=== PATIENT | male | born 1960 | race Two or more races ===

== ENCOUNTER 2017-06-05 16:11 | Inpatient (IN) | payer OTHER ==
[~2017-06-05] VITALS: Ht 170.2 cm; Wt 75.3 kg
--- NOTE | 2017-06-05 17:25 | NUR ---
SENT FROM [facility] FOR POSITIVE BLOOD CULTURE. PATIENT LAST DIALYZED TODAY. PATIENT HAS HD CATH ON RCW. A/OX 4. BREATHING EVEN AND UNLABORED. NO SOB. VITALS STABLE. SAFETY AND COMFORT MEASURES IN PLACE. AWAITING MD ORDERS.
--- NOTE | 2017-06-05 17:45 | NUR ---
PAGED COVERING MACHINE TENDER DR LUIS F HUBBARD WHO IS COVERING MACHINE TENDER FOR DR FRANK SANTIAGO
--- NOTE | 2017-06-05 17:52 | NUR ---
CALLED NURSING SUP. FOR MS BED
[2017-06-05] MEDS ORDERED: FURO20TA4 PO (17:55)
[2017-06-05] MEDS ORDERED: LOSA100T15 PO (17:55)
[2017-06-05] MEDS ORDERED: SEVE800T8 PO (17:55)
[2017-06-05] MEDS ORDERED: ATOR40TA PO (17:55)
[2017-06-05] MEDS ORDERED: ASPI-1169 PO (17:55)
[2017-06-05] MEDS ORDERED: CALC0.5C11 PO (17:55)
[2017-06-05] MEDS ORDERED: INSU100I26 SQ (17:55)
[2017-06-05] MEDS ORDERED: NIFE90TA2 PO (17:55)
[2017-06-05] MEDS ORDERED: CHOL500052 PO (17:55)
[2017-06-05] MEDS ORDERED: VANCOMYCIN 1 GM in IV D5W 250 ML IV ONE (18:00)
[2017-06-05 18:04] LABS: BASOPHILS % (AUTO) 0.4 % (0.0-2.0); EOSINOPHILS # (AUTO) 0.2 /CMM (0.0-0.7); EOSINOPHILS % (AUTO) 3.7 % (0.0-6.0); HEMATOCRIT 33 % (39-51); HEMOGLOBIN 11.5 g/dL (13.5-17.5); LYMPHOCYTES # (AUTO) 1.3 /CMM (0.8-4.8); LYMPHOCYTES % (AUTO) 20.2 % (20.0-44.0); MEAN CORPUSCULAR HEMOGLOBIN 31 PG (26.0-33.0); MEAN CORPUSCULAR HGB CONC 35 g/dl (31.0-36.0); MEAN CORPUSCULAR VOLUME 89 fL (80-96); MONOCYTES # (AUTO) 0.4 /CMM (0.1-1.30); MONOCYTES % (AUTO) 6.7 % (2.0-12.0); NEUTROPHILS # (AUTO) 4.5 /CMM (1.8-8.9); PLATELET COUNT (AUTO) 125 /CMM (150-450); RDW COEFFICIENT OF VARIATION 12.9 (11.5-15.0); RED BLOOD CELL COUNT(AUTO) 3.75 MIL/uL (4.5-6.0); WHITE BLOOD COUNT (AUTO) 6.4 K/uL (4.3-11.0)
[2017-06-05 18:15] LABS: CALCIUM, SERUM 8.7 mg/dL (8.5-10.1); CREATININE 4.5 mg/dL (0.6-1.3); POTASSIUM 4.3 mmol/L (3.5-5.1)
[2017-06-05 18:19] LABS: INR 0.95 (0.87-1.13); PROTHROMBIN TIME 9.9 SECS (9.5-12.7)
--- NOTE | 2017-06-05 18:20 | NUR ---
NEW IV STARTED ON RAC, 20 G. BLOOD DRAWN AND SENT TO LAB.
[2017-06-05 18:21] LABS: ALBUMIN 3.3 g/dL (3.4-5.0); BILIRUBIN,TOTAL 0.5 mg/dL (0.2-1.0)
[2017-06-05] MEDS: LINEZOLID RTU BAG 600 MG in PREMIX 1 EA IV SCH ×2 (18:32→21:00)
--- NOTE | 2017-06-05 18:32 | NUR ---
PER PHARMACY PATIENT NEEDS TO RECEIVED EITHER ZYVOX OR VANCO. NOT BOTH. INFORMED AND STATED TO GIVE ZYVOX AND CANCEL VANCO.
--- NOTE | 2017-06-05 19:14 | NUR ---
ASSUMED CARE: PT AWAKE WATCHING TV, A/O X 4, BREATHING EVEN/UNLABORED, SKIN WARM DRY, PT WITH DIALYSIS PORT TO R UPPER CHEST, RED/TENDER/WARM AT SITE, NO C/O PAIN, PER PT "I RECEIVES DIALYSIS T//S, AND COMPLETED FULL DIALYSIS TODAY. PT IS UPDATED ON PLAN OF CARE
--- NOTE | 2017-06-05 19:20 | NUR ---
REPORT GIVEN TO FRANCO BROOKS FOR [facility].
--- NOTE | 2017-06-05 22:35 | NUR ---
REPORT TO MILES BROOKS. ALL QUESTIONS ANSWERED
--- NOTE | 2017-06-05 23:00 | NUR ---
PERINATAL TECHNICIANCOLLECTION SYSTEMS CONSULTANT NOTES: ADMITTED A 56YO MALE FROM [facility] WITH CC OF HAVING POSITIVE BLOOD CULTURE. PATIENT IS UNDER THE CARE OF DR. LUIS F HUBBARD. HE WAS THEN USHERED TO THE BED. PATIENT APPEARS ALERT AND ORIENTED X4, AMBULATORY, ABLE TO MAKE NEEDS KNOWN. SKIN AND BODY ASSESSMENT CHECKED. PICTURES TAKEN AND PLACED IN THE CHART. ADMISSION ORDERS PLACED. INITIAL ACCUCHECK DONE WITH A READING OF 296MG/DL. PATIETN PLACED ON SAFETY AND FALL PRECAUTIONS. ORIENTED TO UNIT, CARE PLAN AND INFORMED OF DOCTOR ATTENDING TO HIS CARE. IV HEPLOCK IN PLACE ON RIGHT AC G#20- WITH GOOD RETURN FLOW. PLACED BED IN LOW AND LOCKED POSITION. CALL LIGHT PLACED WITHIN PATIENT'S REACH. PROVIDED PATIENT WITH SNACKS AND FLUIDS TOLERATED. PLACED PATIENT ON TELE MONITORING- WITH SINUS RHYTHM 61BPM. WILL ENDORSE PATIENT TO DAY SHIFT NURSE. WILL ATTEND TO PATIENT'S NEEDS.
[2017-06-05 23:30] VITALS: BP 141/75
[2017-06-05 23:49] VITALS: BP 162/92
[2017-06-06] MEDS ORDERED: BLOOD SUGAR DIAGNOSTIC 1 EACH STRIP IN SCH (01:00)
[2017-06-06] MEDS ORDERED: DEXTROSE 50%-WATER 50 ML DISP.SYRIN IV PRN (02:00)
[2017-06-06 04:00] VITALS: BP 144/90
[2017-06-06 05:09] VITALS: BP 144/90
[2017-06-06] MEDS: BLOOD SUGAR DIAGNOSTIC 1 EACH STRIP IN SCH ×4 (06:11→21:38)
--- NOTE | 2017-06-06 06:45 | NUR ---
MS RN NOTES: DR. MAURICIO CALLED OVER THE PHONE TO HAVE PATIENT READY FOR THE PROCEDURE. PATIENT SIGNED THE CONSENT FOR TEMPORARY DIALYSIS CATHETER INSERTION. AND PERMA CATH REMOVAL, THEN WITNESSED BY THE UNDERSIGNED. PATIENT PREPARED AND INSTRUCTED NPO.
[2017-06-06 07:27] LABS: BASOPHILS % (AUTO) 0.6 % (0.0-2.0); EOSINOPHILS # (AUTO) 0.4 /CMM (0.0-0.7); EOSINOPHILS % (AUTO) 6.4 % (0.0-6.0); HEMATOCRIT 33 % (39-51); HEMOGLOBIN 11.4 g/dL (13.5-17.5); LYMPHOCYTES # (AUTO) 1.7 /CMM (0.8-4.8); LYMPHOCYTES % (AUTO) 28.6 % (20.0-44.0); MEAN CORPUSCULAR HEMOGLOBIN 31 PG (26.0-33.0); MEAN CORPUSCULAR HGB CONC 34 g/dl (31.0-36.0); MEAN CORPUSCULAR VOLUME 91 fL (80-96); MONOCYTES # (AUTO) 0.6 /CMM (0.1-1.30); MONOCYTES % (AUTO) 9.5 % (2.0-12.0); NEUTROPHILS # (AUTO) 3.2 /CMM (1.8-8.9); NEUTROPHILS % (AUTO) 54.9 % (43.0-81.0); PLATELET COUNT (AUTO) 127 /CMM (150-450); RDW COEFFICIENT OF VARIATION 14.2 (11.5-15.0); RED BLOOD CELL COUNT(AUTO) 3.68 MIL/uL (4.5-6.0); WHITE BLOOD COUNT (AUTO) 5.9 K/uL (4.3-11.0)
--- NOTE | 2017-06-06 07:40 | NUR ---
RN OPENING NOTES RECEIVED PT. PT IS STABLE AND IN BED. A/OX4. MD DR. MAR AT BEDSIDE FINISHING PROCEDURE. MD DID NOT COMPLETE BEDSIDE PROCEDURE, REMOVAL OF EXISTING PERMA CATH AND PLACEMENT OF TEMPORARY DIALYSIS CATHETER. PER MD ORDER, PERMA CATH WILL BE REMOVED IN OR ON 06/07/17. SAFETY MEASURES IN PLACE, CALL LIGHT WITHIN REACH. WILL CONTINUE TO MONITOR.
--- NOTE | 2017-06-06 07:45 | NUR ---
MS RN: PIPELINE WELDER WAS INFORMED BY DR. MAURICIO, PATIENT WAS NOT ABLE TO TOLERATE THE PROCEDURE AND THAT HE WILL DO THE PROCEDURE IN THE OPERATING ROOM UNDER SEDATION. EXPLAINED TO THE PATIENT. INFORMED THE DAY SHIFT NURSE OF THE OUTCOME OF THE PROCEDURE. WILL CONTINUE TO MONITOR PATIENT. Addendum: 06/06/17 at 0816 by TRISTON FERNANDEZ PATIENT NOT GIVEN HIS REGULAR INSULIN SLIDING SCALE FOR BLOOD SUGAR 260- PATIENT HAS TO UNDERGO THE PROCEDURE. DAY SHIFT NURSE- JOSELUIS MADE AWARE.
[2017-06-06 08:00] VITALS: BP 169/93
[2017-06-06 08:00] LABS: CALCIUM, SERUM 8.6 mg/dL (8.5-10.1); CREATININE 5.2 mg/dL (0.6-1.3); MAGNESIUM 2.3 mg/dL (1.8-2.4); PHOSPHORUS 4.6 mg/dL (2.5-4.9); POTASSIUM 4.4 mmol/L (3.5-5.1)
[2017-06-06] MEDS: LINEZOLID RTU BAG 600 MG in PREMIX 1 EA IV SCH ×2 (08:34→21:34)
[2017-06-06] MEDS ORDERED: HOME MED MISCELLANEOUS XX SCH (09:00)
[2017-06-06] MEDS ORDERED: ACETAMINOPHEN 325 MG TABLET PO PRN (09:30)
[2017-06-06] MEDS ORDERED: ONDANSETRON HCL/PF 4 MG/2 ML VIAL IVP PRN (09:30)
[2017-06-06] MEDS: CALCITRIOL 0.25 MCG CAPSULE PO SCH (10:14)
[2017-06-06] MEDS: NIFEdipine XL 60 MG TAB PO SCH (10:15)
[2017-06-06] MEDS: FUROSEMIDE 20 MG TABLET PO SCH (10:16)
[2017-06-06] MEDS: LOSARTAN POTASSIUM 50 MG TABLET PO SCH (10:16)
[2017-06-06] MEDS: ASPIRIN 81 MG TAB.CHEW PO SCH (10:16)
[2017-06-06 10:42] LABS: EOSINOPHILS % (MANUAL) 5 % (0-4); LYMPHOCYTES % (MANUAL) 27 % (16-48); MONOCYTES % (MANUAL) 10 % (0-11.0); NEUTROPHILS % (MANUAL) 58 (42-76)
[2017-06-06] MEDS ORDERED: HEPARIN SODIUM, PORCINE 1,000 UNIT/ML VIAL IV ONE ×2 (12:01→12:32)
[2017-06-06] MEDS ORDERED: HEPARIN SODIUM,PORCINE 1000 UNIT/1ML MDV VIAL IV ONE (12:11)
[2017-06-06] MEDS: SEVELAMER CARBONATE 800 MG TABLET PO SCH ×2 (12:17→17:19)
[2017-06-06] MEDS: INSULIN REGULAR, HUMAN 100 UNIT/ML 3 ML VIAL SQ PRN ×3 (12:22→21:41)
--- NOTE | 2017-06-06 14:07 | NUR ---
WOUND CARE CONSULT: PT PRESENTS WITH LEFT ANTERIOR LOWER LEG DRY ABRASION AND CALLUS TO LEFT PLANTAR FOOT, PRESENT ON ADMISSION. DEFER TO MD FOR HD CATH SITE. DRESSING DRY AND INTACT TO CHEST. PT INDEPENDENT WITH BED MOBILITY AND CONTINENT. WILL SEE PRN.
[2017-06-06 16:00] VITALS: BP 130/79
--- NOTE | 2017-06-06 18:38 | NUR ---
RN CLOSING NOTES PT STABLE AND RESTING IN BED. NO S/S OF RESPIRATORY DISTRESS OR SOB. CONSENT SIGNED AND PLACED IN CHART FOR HD CATH PLACEMENT TMR 06/07/17. SAFETY MEASURES IN PLACE, CALL LIGHT WITHIN REACH. WILL ENDORSE TO SALES COORDINATOR FOR GRZEGORZ.
--- NOTE | 2017-06-06 19:10 | NUR ---
RN OPEN NOTES RECEIVED PATIENT AWAKE SITTING IN CHAIR. A/O X4. NO SIGNS OF DISTRESS OR DISCOMFORT. BREATHING EVEN AND UNLABORED. IV ACCESS IN RAC, PATENT AND INTACT, NO SIGNS OF REDNESS OR INFILTRATION. HAS RCW PERMACATH INTACT WITH DRESSING C/D/I. BED IN LOW LOCKED POSITION WITH SIDE RAILS X2. CALL LIGHT WITHIN REACH. WILL CONTINUE TO MONITOR.
[2017-06-06 20:00] VITALS: BP 142/94
[2017-06-06] MEDS: ATORVASTATIN 40 MG TABLET PO SCH (21:35)
[2017-06-06] MEDS: INSULIN DETEMIR 100 UNIT/ML CARTRIDGE SQ SCH (21:40)
[2017-06-07] MEDS ORDERED: LIDOCAINE 0.5% HCL 50 ML VIAL ONE (06:18)
--- NOTE | 2017-06-07 06:45 | NUR ---
RN CLOSING NOTES PATIENT GOING DOWN FOR SURGERY IN STABLE CONDITION WITH FAMILY AT BEDSIDE. A/O X4. NO SIGNS OF DISTRESS OR DISCOMFORT. BREATHING EVEN AND UNLABORED. IV ACCESS IN RAC, PATENT AND INTACT, NO SIGNS OF REDNESS OR INFILTRATION. HAS RCW PERMACATH INTACT WITH DRESSING C/D/I. ALL NEEDS MET. NO SIGNIFICANT CHANGES THROUGH THE NIGHT. WILL ENDORSE TO AM SHIFT FOR GRZEGORZ.
[2017-06-07] MEDS ORDERED: MIDAZOLAM HCL 2 MG/2ML VIAL ONE (06:54)
--- NOTE | 2017-06-07 07:00 | NUR ---
ms peterson initial notes patient transported to the surgery for scheduled procedure for permacath removal accompanied by surgery staff.
[2017-06-07] MEDS: BLOOD SUGAR DIAGNOSTIC 1 EACH STRIP IN SCH ×4 (07:30→20:55)
[2017-06-07 08:00] VITALS: BP 145/94
[2017-06-07] MEDS: SEVELAMER CARBONATE 800 MG TABLET PO SCH ×3 (09:12→17:17)
[2017-06-07] MEDS: NIFEdipine XL 60 MG TAB PO SCH (09:13)
[2017-06-07] MEDS: ASPIRIN 81 MG TAB.CHEW PO SCH (09:13)
[2017-06-07] MEDS: CALCITRIOL 0.25 MCG CAPSULE PO SCH (09:13)
[2017-06-07] MEDS: FUROSEMIDE 20 MG TABLET PO SCH (09:13)
[2017-06-07] MEDS: LOSARTAN POTASSIUM 50 MG TABLET PO SCH (09:14)
[2017-06-07] MEDS: LINEZOLID RTU BAG 600 MG in PREMIX 1 EA IV SCH ×2 (09:17→20:48)
[2017-06-07] MEDS: INSULIN REGULAR, HUMAN 100 UNIT/ML 3 ML VIAL SQ PRN ×3 (11:46→21:15)
[2017-06-07 16:00] VITALS: BP 169/102
--- NOTE | 2017-06-07 19:00 | NUR ---
RN NOTES A/O X 4, IN BED RESTING COMFORTABLY PT IN STABLE CONDITION, NO S/S OF DISTRESS. SAFETY MEASURES ARE IN PLACE, CALL LIGHT IS IN REACH. WILL CONTINUE TO MONITOR.
--- NOTE | 2017-06-07 19:29 | NUR ---
ms rn closing notes All needs provided, attended, and anticipated. Kept patient clean and comfortable in bed, call light with in patient reach, endorsed to next shift RN to continue care.
[2017-06-07 20:00] VITALS: BP 165/91
[2017-06-07] MEDS: INSULIN DETEMIR 100 UNIT/ML CARTRIDGE SQ SCH (21:14)
[2017-06-07] MEDS: ATORVASTATIN 40 MG TABLET PO SCH (21:14)
[2017-06-08] MEDS: INSULIN REGULAR, HUMAN 100 UNIT/ML 3 ML VIAL SQ PRN ×4 (05:45→21:25)
[2017-06-08] MEDS: BLOOD SUGAR DIAGNOSTIC 1 EACH STRIP IN SCH ×4 (05:45→21:23)
--- NOTE | 2017-06-08 06:25 | NUR ---
MS RN CLOSING NOTES COMFORTABLY ASLEEP IN BED AND EASILY AWAKEN, TOLERATING ROOM AIR 95% RESPIRATIONS EVEN AND UNLABORED. NOT IN S/S DISTRESS. STABLE CONDITION. KEPT CLEAN AND DRY AND COMFORTABLE, GOOD SKIN CARE PROVIDED. ALL NURSING CARE RENDERED. NEEDS ATTENDED AND ANTICIPATED, FREQUENT VISUAL CHECK DONE FOR SAFETY EVERY 2 HOURS. ON LOW BED AT ALL TIMES TO ENSURE SAFETY. SAFE HAZARD FREE ENVIRONMENT PROVIDED. CALL LIGHT WITHIN EASY TO REACH. WILL ENDORSE NEXT SHIFT CONTINUITY OF CARE.
--- NOTE | 2017-06-08 07:30 | NUR ---
MS RN OPENING NOTES PATIENT IS ALERT AND RESTING IN BED. IN NO APPARENT DISTRESS. BEDSIDE RAILS ARE UP X2. BED IS LOCKED AND LOWERED. CALL LIGHT IS WITHIN REACH. WILL CONTINUE TO MONITOR.
[2017-06-08 08:00] VITALS: BP 151/81
[2017-06-08] MEDS: NIFEdipine XL 60 MG TAB PO SCH (09:28)
[2017-06-08] MEDS: FUROSEMIDE 20 MG TABLET PO SCH (09:29)
[2017-06-08] MEDS: LOSARTAN POTASSIUM 50 MG TABLET PO SCH (09:29)
[2017-06-08] MEDS: CALCITRIOL 0.25 MCG CAPSULE PO SCH (09:29)
[2017-06-08] MEDS: SEVELAMER CARBONATE 800 MG TABLET PO SCH ×3 (09:30→17:08)
[2017-06-08] MEDS: ASPIRIN 81 MG TAB.CHEW PO SCH (09:30)
[2017-06-08] MEDS: LINEZOLID RTU BAG 600 MG in PREMIX 1 EA IV SCH (09:32)
[2017-06-08 16:00] VITALS: BP 142/73
--- NOTE | 2017-06-08 19:21 | NUR ---
MS RN CLOSING NOTES PATIENT IS IN STABLE CONDITION. IN NO APPARENT DISTRESS. BEDSIDE RAILS ARE UP X2. BED IS LOCKED AND LOWERED. WILL ENDORSE CARE TO TRUST MANAGER ASSISTANT NURSE FOR GRZEGORZ.
--- NOTE | 2017-06-08 19:23 | NUR ---
RN NOTES A/O X 4, SITTING IN THE BED, PT IN STABLE CONDITION, NO S/S OF DISTRESS. SAFETY MEASURES ARE IN PLACE, CALL LIGHT IS IN REACH. WILL CONTINUE TO MONITOR.
[2017-06-08 20:00] VITALS: BP 163/84
[2017-06-08] MEDS ORDERED: LINEZOLID RTU BAG 600 MG in PREMIX 1 EA IV SCH (21:00)
[2017-06-08] MEDS ORDERED: LINEZOLID 600 MG TABLET PO SCH (21:00)
--- NOTE | 2017-06-08 21:02 | NUR ---
bs checked 496mg/dl will call MD elementary instructional coach pt states he just ate a lot earlier
--- NOTE | 2017-06-08 21:21 | NUR ---
PAGED ELECTRONIC ORGAN MECHANIC NEPHRO GROUP REPORTING CH RESULTS AWAITING CALL BACK
[2017-06-08] MEDS: ATORVASTATIN 40 MG TABLET PO SCH (21:23)
[2017-06-08] MEDS: INSULIN DETEMIR 100 UNIT/ML CARTRIDGE SQ SCH (21:24)
--- NOTE | 2017-06-08 22:00 | NUR ---
SPOKE TO DR. CASTAÑEDA TENNIS COURT ATTENDANT FOR NEPHRO RELAYED CH BLOOD SUGAR NO NEW ORDERS PER M.D
[2017-06-08 22:30] VITALS: BP 142/76
--- NOTE | 2017-06-08 22:47 | NUR ---
PATIENT DISCHARGE PATIENT LEFT AT 2240, PATIENT ON STABLE CONDITION NO S/S OF DISTRESS NOTED, NO CHEST PAIN, NO HEADACHE, NO NAUSEA AND VOMITING, NO COMPLAINS OF PAIN, VS STABLE, HEALTH EDUCATION AND EXIT CARE WAS PROVIDED, EDUCATION ABOUT DISEASE AND RISKS AND BENEFITS FOLLOW UP CARE PROVIDED, VERBALIZED UNDERSTANDING. DOCUMENTS WAS PROVIDED. IV SITE WAS REMOVED APPLIED CLEAN DRESSING FOR PRESSURE AND KEPT CLEAN AND DRY. TOLERATED PROCEDURE WELL. M.D AWARE OF PATIENT BEING DISCHARGE, ALL BELONGINGS WAS TAKEN, PT WITH HIS DAUGHTER AND SON, PT APPRECIATIVE AND THANKFUL. PATIENT LEFT WITH THEIR OWN TRANSPORTATION. Addendum: 06/08/17 at 2256 by GIRMA TRINH RN PER PT RECEIVED FLU VACCINE AND CURRENT UP TO DATE
[2017-06-10] MEDS ORDERED: ERGOCALCIFEROL (VITAMIN D 2) 50,000 UNIT CAPSULE PO SCH (09:00)
== END 2017-06-08 22:40 | disposition home or self-care (01) | DRG 182 ==
LOC: ER 16:17 → MED 22:16 → TELE 22:18 → MED 06-06 18:10
PROVIDERS: ADMIT Internal Medicine Nephrology; ATTEND Internal Medicine Nephrology
PROC: B513YZA Fluoroscopy of Right Jugular Veins using Other Contrast, Guidance (ICD-10-PCS; principal; 2017-06-07 07:09)
PROC: 05PY33Z Removal of Infusion Device from Upper Vein, Percutaneous Approach (ICD-10-PCS; principal; 2017-06-07 07:09)
PROC: 5A1D70Z Performance of Urinary Filtration, Intermittent, Less than 6 Hours Per Day (ICD-10-PCS; principal; 2017-06-07 07:09)
PROC: 05HM33Z Insertion of Infusion Device into Right Internal Jugular Vein, Percutaneous Approach (ICD-10-PCS; principal; 2017-06-07 07:09)
DX: T82.7XXA Infection and inflammatory reaction due to other cardiac and vascular devices, implants and grafts, initial encounter (principal); A41.9 Sepsis, unspecified organism; N18.6 End stage renal disease; I12.0 Hypertensive chronic kidney disease with stage 5 chronic kidney disease or end stage renal disease; E11.22 Type 2 diabetes mellitus with diabetic chronic kidney disease; Z99.2 Dependence on renal dialysis; Z16.21 Resistance to vancomycin; D64.9 Anemia, unspecified; E83.9 Disorder of mineral metabolism, unspecified; Y84.8 Other medical procedures as the cause of abnormal reaction of the patient, or of later complication, without mention of misadventure at the time of the procedure; Y92.009 Unspecified place in unspecified non-institutional (private) residence as the place of occurrence of the external cause; B95.2 Enterococcus as the cause of diseases classified elsewhere
CPT/HCPCS: 36415; 71045; 80048-TC; 80076-TC; 82962-TC; 83605-TC; 83735-TC; 84100-TC; 85025-TC; 85730-TC; 87040-TC; 87081-TC; 90935-TC; A4216; A4606; A6402; J1644; J1815; J2020; J2250; J3490; J7050; Z7610